=== PATIENT | male | born 1950 ===

== ENCOUNTER 2017-11-11 18:47 | Emergency (ER) | payer MEDICARE, BC ==
[~2017-11-11 18:47] MED LIST: Calcium Chloride 1 GM/10 ML Abboject SYRINGE ONE; EPINEPHrine 1 MG/10 ML Abboject SYRINGE ONE; Midazolam HCl 10 mg/2 ml Vial ONE; Sodium Bicarb 50 MEQ/50 ML Abboject 8.4% SYRINGE ONE
== END 2017-11-11 18:55 | disposition expired ==
LOC: MADERS 18:47
DX: I46.9 Cardiac arrest, cause unspecified (principal); J44.9 Chronic obstructive pulmonary disease, unspecified; F17.210 Nicotine dependence, cigarettes, uncomplicated
CPT/HCPCS: 99291; 99292; J0171; J2250